=== PATIENT | female | born 1985 | race Caucasian/White ===

== ENCOUNTER 2018-03-11 18:42 | Emergency (ER) | payer OTHER ==
[2018-03-11 18:43] VITALS: BMI 25.0
[2018-03-11 19:03] VITALS: BP 108/66; PULSE 77
--- NOTE | 2018-03-11 19:23 | ED PDOC ---
Arrival/HPI - General Chief Complaint: Abnormal Skin Integrity Time Seen by Provider: 03/11/18 19:06 Historian: Patient - History of Present Illness Narrative History of Present Illness (Text): 03/11/18 19:19 33yo female with no pmhx who present for evaluation of the tattoo she received yesterday. States it was done yesterday and she noticed blood discharge and whitish discharge when she got home yesterday. States she have not noticed discharge today. She came to ED for evaluation of the tattoo. She denies fever, chills, nausea, vomiting, any other complaint. Notes that she is using A&D ointment. Past Medical History - Provider Review Nursing Documentation Reviewed: Yes - Infectious Disease Hx of Infectious Diseases: None - Cardiac Hx Cardiac Disorders: No - Pulmonary Hx Respiratory Disorders: No - Neurological Hx Neurological Disorder: No - HEENT Hx HEENT Disorder: No - Renal Hx Renal Disorder: No - Endocrine/Metabolic Hx Endocrine Disorders: No - Hematological/Oncological Hx Blood Disorders: No - Integumentary Hx Dermatological Disorder: No - Musculoskeletal/Rheumatological Hx Musculoskeletal Disorders: No - Gastrointestinal Hx Gastrointestinal Disorders: No - Genitourinary/Gynecological Hx Genitourinary Disorders: No - Psychiatric Hx Depression: Yes Hx Substance Use: No - Anesthesia Hx Anesthesia: No Family/Social History - Physician Review Nursing Documentation Reviewed: Yes Family/Social History: Unknown Family HX Smoking Status: Never Smoked Hx Alcohol Use: No Hx Substance Use: No Allergies/Home Meds Allergies/Adverse Reactions: Allergies No Known Allergies Allergy (Verified 03/11/18 18:53) Home Medications: Home Meds Medication Instructions Recorded Confirmed Multivit/Folic Acid/I 1 tab PO DAILY 03/11/18 03/11/18 [] Review of Systems - Physician Review All systems were reviewed & negative as marked: Yes - Review of Systems Constitutional: Normal Eyes: Normal ENT: Normal Respiratory: Normal Cardiovascular: Normal Gastrointestinal: Normal Genitourinary Female: Normal Musculoskeletal: Normal Skin: Other (Evaluation of tattoo) Neurological: Normal Endocrine: Normal Hemo/Lymphatic: Normal Psychiatric: Normal Physical Exam Vital Signs Reviewed: Yes Vital Signs Temp Pulse Resp BP Pulse Ox 03/11/18 19:02 99.0 F 77 16 108/66 97 Temperature: Afebrile Blood Pressure: Normal Pulse: Regular Respiratory Rate: Normal Appearance: Positive for: Well-Appearing, Non-Toxic, Comfortable Pain Distress: None Mental Status: Positive for: Alert and Oriented X 3 - Systems Exam Head: Present: Atraumatic, Normocephalic Pupils: Present: PERRL Extroacular Muscles: Present: EOMI Conjunctiva: Present: Normal Mouth: Present: Moist Mucous Membranes Neck: Present: Normal Range of Motion Respiratory/Chest: Present: Clear to Auscultation, Good Air Exchange. No: Respiratory Distress, Accessory Muscle Use Cardiovascular: Present: Regular Rate and Rhythm, Normal S1, S2. No: Murmurs Abdomen: No: Tenderness, Distention, Peritoneal Signs Back: Present: Normal Inspection Upper Extremity: Present: Normal Inspection. No: Cyanosis, Edema Lower Extremity: Present: Normal Inspection. No: Edema Neurological: Present: GCS=15, CN II-XII Intact, Speech Normal Skin: Present: Warm, Dry, Normal Color, Other (Tattoo noted over the right upper back/over the scapula. No erythema. No warmth. No purulent discharge. No crepitus. No tenderness. No swelling. No sign of infection). No: Rashes Psychiatric: Present: Alert, Oriented x 3, Normal Insight, Normal Concentration Disposition/Present on Arrival - Present on Arrival Any Indicators Present on Arrival: No History of DVT/PE: No History of Uncontrolled Diabetes: No Urinary Catheter: No History of Decub. Ulcer: No History Surgical Site Infection Following: None - Disposition Have Diagnosis and Disposition been Completed?: Yes Diagnosis: Encounter for evaluation of wound Disposition: HOME/ ROUTINE Disposition Time: 19:25 Patient Plan: Discharge Condition: STABLE Discharge Instructions (ExitCare): Wound Care Additional Instructions: Keep wound clean and dry Follow up with your Doctor Return to ED for redness, purulent discharge, fever from the wound Referrals: Gifty Frey MD [Staff Provider] - Follow up with primary
[2018-03-11 20:14] VITALS: RESP 18; TEMP 99; O2SAT 99
== END 2018-03-11 19:52 | disposition home or self-care (01) ==
LOC: ED 18:42
DX: Z51.89 Encounter for other specified aftercare (principal)